=== PATIENT | male | born 1965 | race African-American/Black ===

== ENCOUNTER 2017-02-17 22:08 | Emergency (ER) | payer BC ==
[2017-02-17] MEDS ORDERED: methylPREDNISolone Sod Succ/PF 125 MG/2 ML VIAL ONE (22:39)
[2017-02-17 22:59] LABS: #Basophils 0.1 thou/uL (0.0-0.2); #Eosinphils 0.5 thou/uL (0.0-0.7); #Lymphocytes 3.3 thou/uL (1.20-3.40); #Monocytes 0.6 thou/uL (0.11-0.59); #Neutrophils 2.7 thou/uL (1.40-6.50); %Basophils 1.5 % (0.0-1.0); %Eosinophils 7.6 % (0.0-10.0); %Lymphocytes 45.1 % (21.0-51.0); %Monocytes 7.9 % (0.0-10.0); Mean Platelet Volume 7.2 fL (7.4-10.4); Red Blood Cell (RBC) Count 4.75 mill/uL (4.70-6.10); White Blood Cell (WBC) Count 7.2 thou/uL (4.8-10.8)
--- NOTE | 2017-02-17 23:04 | RAD ---
CHEST ONE VIEW: History: Respiratory distress. Comparison: None. FINDINGS: Lungs are without focal airspace consolidation or effusion. There appears to be a small calcified gra nuloma left upper lobe. Cardiac silhouette and mediastinal contours within normal limits. No acute os seous abnormality. IMPRESSION: 1. No acute intrathoracic abnormality. 2. Left sided costophrenic focus blunting may be small effusion or scarring. POS: HOME
[2017-02-17 23:06] LABS: PTT 28.2 SEC (22.9-36.1); Prothrombin Time 13.5 SEC (12.0-14.7)
[2017-02-17 23:19] LABS: ALT (SGPT) 13 U/L (8-55); AST (SGOT) 20 U/L (5-34); Alkaline Phosphatase 84 U/L (40-150); Anion Gap 13 mmol/L (10-20); BUN (Urea Nitrogen) 13 mg/dL (8.4-25.7); CK (CPK) 130 U/L (30-200); Calc. Creatinine Clearance 0 mL/min (70-130); Calcium 9.9 mg/dL (7.8-10.44); Carbon Dioxide 24 mmol/L (22-29); Chloride 105 mmol/L (98-107); Estimated GFR-MDRD Greater than 90; Protein, Total 8.3 g/dL (6.0-8.3)
[2017-02-17 23:22] LABS: Troponin I Less than 0.010 ng/mL (< 0.028)
== END 2017-02-18 00:45 | disposition home or self-care (01) ==
LOC: ERS 22:08
DX: R06.02 Shortness of breath (principal); R06.2 Wheezing; F17.210 Nicotine dependence, cigarettes, uncomplicated
CPT/HCPCS: 71010; 80053; 82550; 82553; 84484; 85025; 85610; 85730; 93005; 94640; 96374; J2930; J7620

== ENCOUNTER 2017-08-04 13:06 | Emergency (ER) | payer BC ==
[2017-08-04 13:36] LABS: #Basophils 0.1 thou/uL (0.0-0.2); #Eosinphils 0.3 thou/uL (0.0-0.7); #Lymphocytes 1.8 thou/uL (1.20-3.40); #Monocytes 0.5 thou/uL (0.11-0.59); #Neutrophils 2.8 thou/uL (1.40-6.50); %Basophils 1.3 % (0.0-1.0); %Lymphocytes 32.6 % (21.0-51.0); %Monocytes 8.7 % (0.0-10.0); %Neutrophils 51.3 % (42.0-75.0); Mean Corpuscular HGB CONC 32.5 g/dL (32.0-36.0); Mean Corpuscular Hemoglobin 29.4 pg (27.0-31.0); Mean Corpuscular Volume 90.3 fl (80.0-94.0); Mean Platelet Volume 6.9 fL (7.4-10.4); Platelet Count 290 thou/uL (130-400); RBC Distribution Width 12.4 % (11.5-14.5); Red Blood Cell (RBC) Count 4.76 mill/uL (4.70-6.10); White Blood Cell (WBC) Count 5.4 thou/uL (4.8-10.8)
[2017-08-04 14:04] LABS: ALT (SGPT) 13 U/L (8-55); AST (SGOT) 21 U/L (5-34); Alkaline Phosphatase 82 U/L (40-150); Anion Gap 10 mmol/L (10-20); BUN (Urea Nitrogen) 10 mg/dL (8.4-25.7); Bilirubin, Total 0.9 mg/dL (0.2-1.2); CK (CPK) 154 U/L (30-200); CKMB 1.3 ng/mL (0-6.6); Calc. Creatinine Clearance 0 mL/min (70-130); Calcium 10.2 mg/dL (7.8-10.44); Carbon Dioxide 24 mmol/L (22-29); Chloride 107 mmol/L (98-107); Estimated GFR-MDRD Greater than 90; Globulin 3.5 g/dL (2.4-3.5); Glucose 148 mg/dL (70-105); Protein, Total 7.5 g/dL (6.0-8.3); Sodium 137 mmol/L (136-145); Troponin I Less than 0.010 ng/mL (< 0.028)
--- NOTE | 2017-08-04 14:39 | RAD ---
FRONTAL RADIOGRAPH CHEST: Date: 08-04-17 Comparison: 02-17-17 History: Shortness of breath, history of COPD. FINDINGS: There is no pneumothorax, pleural fluid, focal consolidation or alveolar edema. Heart and mediastinal contours are grossly unremarkable. There is mild interstitial prominence and pulmonary hyperinflatio n, similar when compared to prior imaging. This may reflect the patient's history of COPD. IMPRESSION: No focal consolidation or alveolar edema. POS: [facility]
[2017-08-04] MEDS ORDERED: methylPREDNISolone Sod Succ/PF 125 MG/2 ML VIAL ONE (16:13)
[2017-08-04] MEDS ORDERED: Water For Inject, Bacteriostat 30 ML ONE (16:13)
== END 2017-08-04 18:33 | disposition home or self-care (01) ==
LOC: ERS 13:06
DX: J44.1 Chronic obstructive pulmonary disease with (acute) exacerbation (principal); F17.210 Nicotine dependence, cigarettes, uncomplicated; Z71.6 Tobacco abuse counseling; Z79.899 Other long term (current) drug therapy
CPT/HCPCS: 36415; 71045; 80053; 82550; 82553; 84484; 85025; 93005; 94760; 96374; 99406; J2930; J7620

== ENCOUNTER 2019-12-27 13:14 | Emergency (ER) | payer BC ==
[2019-12-27 15:03] LABS: #Eosinphils 0.2 thou/uL (0.0-0.7); #Lymphocytes 1.9 thou/uL (1.20-3.40); #Monocytes 0.7 thou/uL (0.11-0.59); #Neutrophils 3.5 thou/uL (1.40-6.50); %Basophils 0.5 % (0.0-1.0); %Eosinophils 3.5 % (0.0-10.0); %Lymphocytes 30.1 % (21.0-51.0); %Monocytes 11.4 % (0.0-10.0); %Neutrophils 54.5 % (42.0-75.0); Hemoglobin 15.3 g/dL (14.0-18.0); Mean Corpuscular HGB CONC 32.6 g/dL (32.0-36.0); Mean Corpuscular Volume 92.2 fL (78.0-98.0); Mean Platelet Volume 8.1 fL (7.4-10.4); Platelet Count 301 thou/uL (130-400); RBC Distribution Width 12.3 % (11.5-14.5); Red Blood Cell (RBC) Count 5.09 mill/uL (4.70-6.10); White Blood Cell (WBC) Count 6.3 thou/uL (4.8-10.8)
[2019-12-27] MEDS ORDERED: Lidocaine 1% w/Epinephrine 1:100K 20 ML VIAL ONE (15:09)
[2019-12-27] MEDS ORDERED: cefTRIAXone\\ROCEPHIN 1 GM VIAL ONE (15:18)
[2019-12-27] MEDS ORDERED: Ondansetron PF 4 MG/2 ML Vial ONE (15:22)
[2019-12-27 15:25] LABS: ALT (SGPT) 16 U/L (8-55); AST (SGOT) 17 U/L (5-34); Albumin 4.3 g/dL (3.5-5.0); Alkaline Phosphatase 91 U/L (40-110); Anion Gap 15 mmol/L (10-20); BUN (Urea Nitrogen) 11 mg/dL (8.4-25.7); Bilirubin, Total 0.9 mg/dL (0.2-1.2); Calc. Creatinine Clearance 0 mL/min (70-130); Calcium 10.2 mg/dL (7.8-10.44); Carbon Dioxide 25 mmol/L (22-29); Chloride 107 mmol/L (98-107); Estimated GFR-MDRD Greater than 90; Globulin 4.1 g/dL (2.4-3.5); Glucose 97 mg/dL (70-105); Potassium 4.5 mmol/L (3.5-5.1); Protein, Total 8.4 g/dL (6.0-8.3); Sodium 142 mmol/L (136-145)
== END 2019-12-27 15:44 | disposition home or self-care (01) ==
LOC: ERS 13:14
DX: K64.5 Perianal venous thrombosis (principal); F17.210 Nicotine dependence, cigarettes, uncomplicated
CPT/HCPCS: 36415; 46083; 80053; 85025; J0696; J2405

== ENCOUNTER 2022-03-04 12:14 | Emergency (ER) | payer BC ==
[2022-03-04] MEDS ORDERED: Ondansetron ODT 4 MG TAB ONE (13:49)
[2022-03-04] MEDS ORDERED: Ibuprofen 800 MG TAB ONE (13:49)
== END 2022-03-04 14:46 | disposition home or self-care (01) ==
LOC: ERS 12:14
DX: U07.1 COVID-19 (principal)
CPT/HCPCS: 99283; Q0162

== ENCOUNTER 2022-07-08 10:49 | Emergency (ER) | payer BC ==
[2022-07-08] MEDS ORDERED: Ketorolac Tromethamine 30 MG/ML VIAL ONE (11:22)
== END 2022-07-08 11:45 | disposition home or self-care (01) ==
LOC: ERS 10:49
DX: S39.012A Strain of muscle, fascia and tendon of lower back, initial encounter (principal); J44.9 Chronic obstructive pulmonary disease, unspecified; X50.0XXA Overexertion from strenuous movement or load, initial encounter
CPT/HCPCS: 96372; 99283; J1885